=== PATIENT | female | born 1970 | race African-American/Black ===

== ENCOUNTER 2018-07-10 06:33 | Day surgery (SDC) | payer OTHER ==
--- OUTSIDE RECORDS SUMMARY | 2018-07-10 06:35 | XMS REPORT ---
:1970 Author Organization eClinicalWorks Care Team Providers Name Role Phone Iker Caio Provider Role Unavailable Allergies No Known Allergies Problems Problem Type Condition Code Onset Dates Condition Status Problem Adult BMI 33.0-33.9 kg/sq m Z68.33 Active Problem Former tobacco use Z87.891 Active Assessment Controlled type 2 diabetes mellitus E11.9 Active without complication, without long-term current use of insulin Problem Prediabetes R73.03 Active Problem Vitamin D deficiency E55.9 Active Problem Controlled type 2 diabetes mellitus E11.9 Active without complication, without long-term current use of insulin Problem Migraine without aura and without G43.009 Active status migrainosus, not intractable Problem HTN (hypertension), benign I10 Active Problem Mixed hyperlipidemia E78.2 Active Problem Fatigue, unspecified type R53.83 Active Medications Medication Code Code Instructions Start End Status Dosage System Date Date Losartan [facility] 26606589590 50-12.5 MG Active 1 tablet Potassium-HCTZ Orally Once a day Atenolol ND 66254796798 50 MG Orally Active 1 tablet Once a day Aspirin 81 ND 11600439681 81 MG Orally Active 1 tablet Once a day Janumet ND 09062016079 50-500 MG Orally Jun 05, Inactive 1 tablet Twice a day 2018 with meals MetFORMIN HCl ND 56479584584 500 MG Orally Jun 05, Active 1 tablet ER Twice a day 2018 with a meal Results No Known Results Summary Purpose eClinicalWorks Submission
--- OUTSIDE RECORDS SUMMARY | 2018-07-10 06:35 | XMS REPORT ---
:1970 Author Organization eClinicalWorks Care Team Providers Name Role Phone Caio Dong Provider Role Unavailable Allergies, Adverse Reactions, Alerts Substance Reaction Event Type N.K.D.A. Info Not Available Non Drug Allergy Problems Problem Type Condition Code Onset Dates Condition Status Assessment HTN (hypertension), benign I10 Active Problem HTN (hypertension), benign I10 Active Problem Mixed hyperlipidemia E78.2 Active Problem Prediabetes R73.03 Active Problem Vitamin D deficiency E55.9 Active Problem Fatigue, unspecified type R53.83 Active Problem Migraine without aura and without G43.009 Active status migrainosus, not intractable Problem Adult BMI 33.0-33.9 kg/sq m Z68.33 Active Problem Former tobacco use Z87.891 Active Assessment Adult BMI 33.0-33.9 kg/sq m Z68.33 Active Assessment Mixed hyperlipidemia E78.2 Active Assessment Vitamin D deficiency E55.9 Active Assessment Migraine without aura and without G43.009 Active status migrainosus, not intractable Assessment Prediabetes R73.03 Active Assessment Fatigue, unspecified type R53.83 Active Assessment Hip pain, right M25.551 Active Medications Medication Code Code Instructions Start End Date Status Dosage System Date Metformin HCl [facility] 86108474681 500 MG Orally August 02, Active 1 tablet Twice a day 2017 with a meal Atenolol [facility] 18889921759 50 MG Orally Active 1 tablet Once a day Losartan [facility] 12503290963 50-12.5 MG Active 1 tablet Potassium-HCTZ Orally Once a day Metformin HCl ND 55701322687 500 MG Orally Active 1 tablet Twice a day with a meal Aspirin 81 ND 73543867278 81 MG Orally Active 1 tablet Once a day Results No Known Results Summary Purpose eClinicalWorks Submission
--- OUTSIDE RECORDS SUMMARY | 2018-07-10 06:35 | XMS REPORT ---
:1970 Author Organization eClinicalWorks Care Team Providers Name Role Phone Caio Dnog Provider Role Unavailable Allergies No Known Allergies Problems Problem Type Condition Code Onset Dates Condition Status Problem HTN (hypertension), benign I10 Active Problem Mixed hyperlipidemia E78.2 Active Problem Prediabetes R73.03 Active Problem Vitamin D deficiency E55.9 Active Problem Fatigue, unspecified type R53.83 Active Problem Migraine without aura and without G43.009 Active status migrainosus, not intractable Problem Adult BMI 33.0-33.9 kg/sq m Z68.33 Active Problem Former tobacco use Z87.891 Active Medications No Known Medications Results No Known Results Summary Purpose eClinicalWorks Submission
--- OUTSIDE RECORDS SUMMARY | 2018-07-10 06:35 | XMS REPORT ---
:1970 [facility] [address] [place] [address] Care Team Providers Name Role Phone Unavailable Unavailable Unavailable Problems This patient has no known problems. Allergies, Adverse Reactions, Alerts This patient has no known allergies or adverse reactions. Medications This patient has no known medications. Results Test Description Test Time Test Comments Text Results Atomic Results Result Comments BREAST ULTRASOUND RIGHT 2018-06-19 10:08:31 - BREAST ULTRASOUND RIGHTULTRASOUND OF RIGHT BREAST AND RIGHT AXILLA: 06/19/2018CLINICAL: Right breast mass. Comparison is made to exam dated 06/17/2010 ultrasound - [facility]. Ultrasound of the right breast and axilla was performed. Magana scale images of the real-time examination were reviewed. Normal breast echotexture is noted. No abnormal mass lesions, architectural changes or cysts are identified. Within the right inframammary region of the anterior chest wall, is a subcutaneous nodule, hypoechoic measuring 0.5 cm in the long axis.IMPRESSION: BENIGN Findings are suspicious for a right chest wall, inframammary subcutaneous lesion, likely sebaceous or follicular. This can be better evaluated and followed up clinically.There is no sonographic evidence of breast malignancy. Resume annual screening mammography in one year. Mega velasco/:06/19/2018 10:08:31 Entry: cc - 06/22/2018 09:28:31Imaging Technologist: Sho AGLE, [facility] BIRADS 1-2 Combo FU Letter Ultrasound BI-RADS: 2 Benign DIAG MAMM BILATERAL ADA 2018-06-19 10:06:10 - DIAG MAMM BILATERAL ADA CAD CAD DIGITAL DIGITALBILATERAL DIGITAL DIAGNOSTIC MAMMOGRAM 3D/2D WITH CAD: 06/19/2018CLINICAL: Right breast lump and pain. Digital breast tomosynthesis was performed in addition to routine CC and MLO views. Current mammographic images were evaluated by either a [employer]-Vu or an [employer] version 7.2 computer aided detection system. Comparison is made to exam dated 06/17/2010 mammogram - [facility]. There are scattered fibroglandular tissues in both breasts. No suspicious mass, architectural distortion, malignant type calcification, or lymph node abnormality detected. IMPRESSION: INCOMPLETE ASSESSMENT: ADDITIONAL IMAGING EVALUATION RECOMMENDEDNegative bilateral mammogram. Additional evaluation with right breast ultrasound is requested an pending.Mega velasco/:06/19/2018 10:06:10 Property Assistant: Sunday GALE, [facility] BI-RADS: 0 Indeterminate
--- OUTSIDE RECORDS SUMMARY | 2018-07-10 06:35 | XMS REPORT ---
:1970 Author Organization eClinicalWorks Care Team Providers Name Role Phone Iker Caio Provider Role Unavailable Allergies, Adverse Reactions, Alerts Substance Reaction Event Type N.K.D.A. Info Not Available Non Drug Allergy Problems Problem Type Condition Code Onset Dates Condition Status Problem Adult BMI 33.0-33.9 kg/sq m Z68.33 Active Problem Former tobacco use Z87.891 Active Problem Prediabetes R73.03 Active Assessment Former tobacco use Z87.891 Active Problem Vitamin D deficiency E55.9 Active Assessment Need for influenza vaccination Z23 Active Problem Controlled type 2 diabetes mellitus E11.9 Active without complication, without long-term current use of insulin Problem Migraine without aura and without G43.009 Active status migrainosus, not intractable Problem HTN (hypertension), benign I10 Active Problem Mixed hyperlipidemia E78.2 Active Problem Fatigue, unspecified type R53.83 Active Assessment Vitamin D deficiency E55.9 Active Assessment Fatigue, unspecified type R53.83 Active Assessment Mixed hyperlipidemia E78.2 Active Assessment Migraine without aura and without G43.009 Active status migrainosus, not intractable Assessment Screening for colon cancer Z12.11 Active Assessment Screening mammogram, encounter for Z12.31 Active Assessment Controlled type 2 diabetes mellitus E11.9 Active without complication, without long-term current use of insulin Assessment Adult BMI 33.0-33.9 kg/sq m Z68.33 Active Assessment HTN (hypertension), benign I10 Active Assessment Encounter for preventative adult Z00.01 Active health care exam with abnormal findings Medications Medication Code Code Instructions Start End Status Dosage System Date Date Metformin HCl [facility] 70802780005 500 MG Orally Inactive 1 tablet Twice a day with a meal Losartan [facility] 02630393097 50-12.5 MG Active 1 tablet Potassium-HCTZ Orally Once a day Aprumet ND 77761751611 50-500 MG Orally Jun 05, Active 1 tablet Twice a day 2018 with meals Aspirin 81 [facility] 54372731318 81 MG Orally Active 1 tablet Once a day Atenolol [facility] 29431589778 50 MG Orally Active 1 tablet Once a day Results No Known Results Immunizations Vaccine Administration Date Afluria Jun 05, 2018 Summary Purpose eClinicalWorks Submission
[2018-07-10] MEDS ORDERED: NA CHLORIDE 0.9% 1,000 ML ONE (06:50)
[2018-07-10] MEDS ORDERED: PROPOFOL 200 MG/20 ML VIAL IV ONE (07:38)
[2018-07-10] MEDS ORDERED: LIDOCAINE 1% MPF 5 ML VIAL ONE (07:38)
--- NOTE | 2018-07-12 21:03 | ENDO RPT ---
[address], [address] COLONOSCOPY PROCEDURE REPORT EXAM DATE: 07/10/2018 PATIENT NAME: Halima Serrano MR #: [id number] BIRTHDATE: 1970 ATTENDING: Miky Pritchard MD STATUS: outpatient CLIENT RELATIONSHIP CONSULTANT: Esperanza Rubio RN and Rayne Mendoza INDICATIONS: The patient is a 48 yr old Female here for a colonoscopy due to colon cancer screening PROCEDURE PERFORMED: Colonoscopy MEDICATIONS: Per Anesthesia. ESTIMATED BLOOD LOSS: None CONSENT: The patient understands the risks and benefits of the procedure and understands that these risks include, but are not limited to: sedation, allergic reaction, infection, perforation and/or bleeding. Alternative means of evaluation and treatment include, among others: physical exam, x-rays, and/or surgical intervention. The patient elects to proceed with this endoscopic procedure. DESCRIPTION OF PROCEDURE: During intra-op preparation period all mechanical medical equipment was checked for proper function. Hand hygiene and appropriate measures for infection prevention was taken. Procedure, possible complications, alternatives including, but not limited to possibility of bleeding, perforation, tear, infection, sepsis, need for surgery, need for blood transfusion, were explained to the patient. After the risks, benefits and alternatives of the procedure were thoroughly explained, Informed consent was verified, confirmed and timeout was successfully executed by the treatment team. The patient was placed in the left lateral position. A digital rectal exam was performed and revealed external hemorrhoids. After appropriate level of anesthesia, the scope was passed. The EC-[id number] ([id number]) endoscope was introduced through the anus and advanced to the cecum, which was identified by transillumination from the light source, the appendix, and the ileocecal valve. The quality of the prep was fair. The instrument was then slowly withdrawn as the colon was fully examined. Scope withdrawal time was . COLON FINDINGS: Internal and external hemorrhoids were found. Retroflexed views revealed no abnormalities. The scope was then completely withdrawn from the patient and the procedure terminated. ADVERSE EVENTS: There were no complications. IMPRESSIONS: Internal and external hemorrhoids RECOMMENDATIONS: follow-up: office 1-2 week(s) RECALL: Return in 5-10 year(s) for Colonoscopy. Miky Pritchard MD eSigned: Miky Pritchard MD 07/10/2018 8:02 AM cc: Caio Dong MD CPT CODES: ICD9 CODES: PATIENT NAME: Halima Serrano MR#: [id number]
== END 2018-07-10 08:25 | disposition home or self-care (01) ==
LOC: OR 06:33
PROVIDERS: ATTEND Surgery
PROC: 0DJD8ZZ Inspection of Lower Intestinal Tract, Via Natural or Artificial Opening Endoscopic (ICD-10-PCS; principal; 2018-07-10 07:30)
DX: Z12.11 Encounter for screening for malignant neoplasm of colon (principal); K64.8 Other hemorrhoids; K64.4 Residual hemorrhoidal skin tags; E11.9 Type 2 diabetes mellitus without complications; I10 Essential (primary) hypertension; Z79.84 Long term (current) use of oral hypoglycemic drugs; Z79.82 Long term (current) use of aspirin; Z79.899 Other long term (current) drug therapy
CPT/HCPCS: 82962; J2704; J7030

== ENCOUNTER 2019-02-13 15:24 | Emergency (ER) | payer OTHER ==
[2019-02-13] MEDS ORDERED: metroNIDAZOLE 500 MG TABLET ONE (17:05)
[2019-02-13] MEDS ORDERED: CLINDAMYCIN HCL 150 MG CAP ONE (17:06)
[2019-02-13] MEDS ORDERED: HYDROCODONE/APAP 7.5/325 MG TAB ONE (17:06)
--- NOTE | 2019-02-13 18:38 | ER ---
Nurse's Notes [facility] Name: Halima Serrano Age: 49 yrs Sex: Female : 1970 Arrival Date: 02/13/2019 Time: 15:43 Bed External Waiting [facility] MD: Diagnosis: Dental Abscess Presentation: 02/13 15:44 Presenting complaint: Right sided facial swelling x 2 days. Had clindamycin at home hb from previous illness, started yesterday. Transition of care: patient was not received from another setting of care. Onset of symptoms was February 12, 2019. Risk Assessment: Do you want to hurt yourself or someone else? Patient reports no desire to harm self or others. Care prior to arrival: Medication(s) given: clindamycin. 15:44 Method Of Arrival: Ambulatory hb 15:44 Acuity: KAVEH 3 hb Historical: - Allergies: 15:46 No Known Allergies; hb - Home Meds: 15:46 aspirin 81 mg Oral chew [Active]; Atenolol Oral [Active]; Metformin Oral [Active]; hb - PMHx: 15:46 Hypertension; Hypothyroidism; Diabetes - NIDDM; hb - PSHx: 15:46 Hysterectomy; hb - Immunization history:: Adult Immunizations up to date. - Social history:: Smoking status: Patient/guardian denies using tobacco. - Ebola Screening: : No symptoms or risks identified at this time. Vital Signs: 15:46 BP 174 / 93; Pulse 76; Resp 16; Temp 98.2; Pulse Ox 100% ; Weight 83.91 kg; Height 5 hb ft. 7 in. (170.18 cm); Pain 8/10; 15:46 Body Mass Index 28.97 (83.91 kg, 170.18 cm) hb ED Course: 15:43 Patient arrived in ED. hb 15:45 Triage completed. hb 15:46 Arm band placed on. hb 18:37 Mark Branch MD is Attending Physician. iw Administered Medications: No medications were administered Outcome: 18:36 Discharge ordered by MD. iw 18:37 Patient left the ED. iw Signatures: Angie Velasco RN RN iw Astrid Ludwig RN RN hb
[2019-02-13 20:10] VITALS: BP 174/93; TEMP 98.2; O2SAT 100
--- OUTSIDE RECORDS SUMMARY | 2019-02-23 18:59 | XMS REPORT ---
:1970 [facility] Address [address] [place] [address] Care Team Providers Name Role Phone Unavailable [...] to exam dated 06/17/2010 ultrasound - [facility]. Ultrasound of the right breast [...] Entry: cc - 06/22/2018 09:28:31Imaging Technologist: Sho GALE, [facility] sent: BIRADS 1-2 Combo FU Letter Ultrasound BI-RADS: 2 Benign DIAG MAMM BILATERAL ADA 2018-06-19 10:06:10 - DIAG MAMM BILATERAL ADA CAD CAD DIGITAL DIGITALBILATERAL DIGITAL DIAGNOSTIC MAMMOGRAM 3D/2D WITH CAD: 06/19/2018CLINICAL: Right breast lump and pain. Digital breast tomosynthesis was performed in addition to routine CC and MLO views. Current mammographic images were evaluated by either a [employer] M-Vu or an [employer] version 7.2 computer aided detection system. Comparison is made to exam dated 06/17/2010 mammogram - [facility]. There are scattered fibroglandular tissues in both breasts. No suspicious mass, architectural distortion, malignant type calcification, or lymph node abnormality detected. IMPRESSION: INCOMPLETE ASSESSMENT: ADDITIONAL IMAGING EVALUATION RECOMMENDEDNegative bilateral mammogram. Additional evaluation with right breast ultrasound is requested an pending.Mega velasco/:06/19/2018 10:06:10 Liquid Hydrogen Plant Operator: Sunday Hunter RG, [facility] BI-RADS: 0 Indeterminate
--- OUTSIDE RECORDS SUMMARY | 2019-02-23 18:59 | XMS REPORT ---
:1970 Author Organization eClinicalWorks Care Team Providers Name Role Phone Wai Hallman Provider Role Unavailable Allergies No Known Allergies Problems Problem Type Condition Code Onset Dates Condition Status Problem Former tobacco use Z87.891 Active Problem HTN (hypertension), benign I10 Active Problem Adult BMI 33.0-33.9 kg/sq m Z68.33 Active Problem Controlled type 2 diabetes mellitus E11.9 Active without complication, without long-term current use of insulin Problem Prediabetes R73.03 Active Problem Arthritis of sacroiliac joint M47.818 Active Problem Fatigue, unspecified type R53.83 Active Problem Migraine without aura and without G43.009 Active status migrainosus, not intractable Problem Vitamin D deficiency E55.9 Active Problem Mixed hyperlipidemia E78.2 Active Medications No Known Medications Results No Known Results Summary Purpose Scoop.it[employer]TASS Submission
--- OUTSIDE RECORDS SUMMARY | 2019-02-23 18:59 | XMS REPORT ---
:1970 Author Organization eClinicalWorks Care Team Providers Name Role Phone DongCaio Provider Role Unavailable Allergies, Adverse Reactions, Alerts [...] without long-term current use of insulin Assessment Statin intolerance Z78.9 Active Problem Prediabetes R73.03 Active Assessment Lumbar radiculopathy, chronic M54.16 Active Assessment Radicular syndrome of right lower M54.10 Active extremity Problem Arthritis of sacroiliac joint M47.818 Active Problem Fatigue, unspecified type R53.83 Active Problem Migraine without aura and without G43.009 Active status migrainosus, not intractable Problem Vitamin D deficiency E55.9 Active Problem Mixed hyperlipidemia E78.2 Active Assessment Adult BMI 33.0-33.9 kg/sq m Z68.33 Active Assessment Mixed hyperlipidemia E78.2 Active Assessment Right hip pain M25.551 Active Assessment Former tobacco use Z87.891 Active Assessment Fatigue, unspecified type R53.83 Active Assessment HTN (hypertension), benign I10 Active Assessment Migraine without aura and without G43.009 Active status migrainosus, not intractable Assessment Controlled type 2 diabetes mellitus E11.9 Active without complication, without long-term current use of insulin Assessment Vitamin D deficiency E55.9 Active Medications Medication Code Code Instructions Start End Status Dosage System Date Date Aspirin 81 [facility] 37323732332 81 MG Orally Active 1 tablet Once a day Atenolol ND 73027471370 50 MG Orally Active 1 tablet Once a day Losartan ND 29509824347 50-12.5 MG Active 1 tablet Potassium-HCTZ Orally Once a day Atorvastatin ND 95546159039 10 MG Orally Inactive 1 tablet Calcium Once a day Zetia [facility] 58745317301 10 MG Orally Feb 20, Active 1 tablet Once a day 2018 Vitamin D [facility] [address]-34 Active not defined Magnesium [facility] 0 Active not defined Mobic [facility] 85613016160 7.5 MG Active TAKE 1 TABLET BY MOUTH EVERY DAY MetFORMIN HCl [facility] 57416668176 500 MG Orally Active 1 tablet ER Twice a day with a meal Results No Known Results Summary Purpose eClinicalWorks Submission
== END 2019-02-13 18:37 | disposition home or self-care (01) ==
LOC: ER 15:24
DX: K04.7 Periapical abscess without sinus (principal); I10 Essential (primary) hypertension; E11.9 Type 2 diabetes mellitus without complications
CPT/HCPCS: 99281

== ENCOUNTER 2022-03-09 23:20 | Emergency (ER) | payer OTHER ==
--- OUTSIDE RECORDS SUMMARY | 2022-03-09 23:25 | XMS REPORT | Continuity of Care Document ---
:1970 Author Organization [facility] t Address [address] [place] [address] Care Team Providers Name Role Phone Alysia Hagen Primary Care Physician Caio Dong Attending Clinician Unavailable Alysia Hagen Attending Clinician Lissa Velasquez LVN Attending Clinician Unavailable Lab, Ang - Db Attending Clinician Unavailable ALYSIA ANAYA Attending Clinician Unavailable Esteban Ortiz MD Attending Clinician ESTEBAN ORTIZ Attending Clinician Unavailable Carlos Rowell MD Attending Clinician Doctor Unassigned, [place] Attending Clinician Unavailable MARCIN GRADY Attending Clinician Unavailable Nurse, Adc Pob Immunization Attending Clinician Unavailable Marcin Grady DO Attending Clinician Horace Ochoa Attending Clinician CATRACHO BONILLA Attending Clinician Unavailable Pob[facility], [facility] Attending Clinician Unavailable ALYSIA ANAYA Admitting Clinician Unavailable Payers Payer Name Policy Type Policy Number Effective Date Expiration Date S ashley LEVINENA II [id number] 2019 00:00:00 [employer] C1 [id number] 2018 [facility] 00:00[facility]00 [facility] Problems Condition Condition Condition Status Onset Resolution Last Treating Co mments Source Name Details Category Date Date Treatment Clinician Date [id number] Memory Problem Active Common change [facility] - [facility] [id number] Former Problem Active Common tobacco Spirit use - [facility] [id number] Migraine Problem Active Comm on without Spirit aura and - [facility] without [facility] migrainosu Medica l s, not Center intractabl e [id number] Adult BMI Problem Active Com mon 33.0-33.9 Spirit kg/sq m [facility] [id number] Vitamin D Problem Active Comm on deficiency [facility] [id number] Mixed Problem Active Common hyperlipid Spirit emia [facility] [id number] Prediabete Problem Active Co mmon s [facility] [id number] Degenerati Problem Active Com mon ve disc Spirit disease at [facility] L5-S1 [facility] [id number] HTN Problem Active Common (hypertens Spirit ion), - [facility] benign [facility] [id number] Bulging Problem Active Commo n lumbar Spirit disc [facility] [id number] Fatigue, Problem Active Commo n unspecifie Spirit d type - [facility] [id number] Controlled Problem Active Co mmon type 2 Spirit diabetes - [facility] mellitus [facility] complicati Medica l on, Center without long-term current use of insulin [id number] Arthritis Problem Active Com mon of Spirit sacroiliac - [facility] joint [facility] [id number] Subclinica Problem Active Co mmon l Spirit hyperthyro - 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 Spirit n [facility] No known No known Disease Unive rs active active ity of problems problems [facility] Allergies, Adverse Reactions, Alerts Allergy Allergy Status Severity Reaction(s) Onset Inactive Treating Comm ents Source Name Type Date Date Clinician NO KNOWN Drug Active Univers ALLERGIE Class ity of S [facility] Social History Social Habit Start Date Stop Date Quantity Comments Source History of [facility] - [facility] Use [facility] Sex Assigned At [facility] deepthi - [facility] Exposure to 2021-12-02 2021-12-12 Not sure University of SARS-CoV-2 00:00:00 09:35:00 [facility] (event) Branch Tobacco use and 2019-11-02 2019-11-02 Smokeless tobacco Un iversity of exposure 00:00:00 00:00:00 non-user [facility] Smoking Status Start Date Stop Date Source Former Smoker 2020-12-15 00:00:00 2020-12-15 00:00:00 [facility] - [facility] Medications Ordered Filled Start Stop Current Ordering Indication Dosage Frequency Signature Comments Components Source Medication Medication Date Date Medication? Clinician (SIG) Name Name metformin 2021-04 Yes [id number] 500mg Take 1 U nivers ER 500 mg 1-17 tablet by ity o f 24 hr 00:00: mouth in [place] tablet 00 the Medical morning. Branch ezetimibe 2021-04 Yes [id number] 10mg Take 1 U nivers 10 mg 1-17 tablet by ity of tablet 00:00: mouth in [place] 00 the Medical morning. Branch losartan-hy 2021-04 Yes [id number] 1{tbl} Take 1 Univers drochloroth 1-17 tablet by ity of iazide 00:00: mouth in [place] 50-12.5 mg 00 the Medical per tablet morning. Bran h atenoloL 2021-04 Yes [id number] 100mg Take 1 Un arya 100 mg 1-17 tablet by ity of tablet 00:00: mouth in [place] 00 the Medical morning. Branch metformin 2021-04 Yes [id number] 500mg Take 1 U nivers ER 500 mg 1-17 tablet by ity o f 24 hr 00:00: mouth in [place] tablet 00 the Medical morning. Branch ezetimibe 2021-04 Yes [id number] 10mg Take 1 U nivers 10 mg 1-17 tablet by ity of tablet 00:00: mouth in [place] 00 the Medical morning. Branch losartan-hy 2021-04 Yes [id number] 1{tbl} Take 1 Univers drochloroth 1-17 tablet by ity of iazide 00:00: mouth in [place] 50-12.5 mg 00 the Medical per tablet morning. Branc h atenoloL 2021-04 Yes [id number] 100mg Take 1 Un arya 100 mg 1-17 tablet by ity of tablet 00:00: mouth in [place] 00 the Medical morning. Branch metformin 2021-0 Yes [id number] 500mg Take 1 U nivers ER 500 mg 8-29 tablet by ity o f 24 hr 00:00: mouth in [place] tablet 00 the Medical morning. Branch ezetimibe 2021-0 Yes [id number] 10mg Take 1 U nivers 10 mg 8-29 tablet by ity of tablet 00:00: mouth in [place] 00 the Medical morning. Branch losartan-hy 2021-0 Yes [id number] 1{tbl} Take 1 Univers drochloroth 8-29 tablet by ity of iazide 00:00: mouth in [place] 50-12.5 mg 00 the Medical per tablet morning. Bran h atenoloL 2021-0 Yes [id number] 100mg Take 1 Un arya 100 mg 8-29 tablet by ity of tablet 00:00: mouth in [place] 00 the Medical morning. Branch metformin 2021-0 Yes [id number] 500mg Take 1 U nivers ER 500 mg 8-29 tablet by ity o f 24 hr 00:00: mouth in [place] tablet 00 the Medical morning. Branch ezetimibe 2021-0 Yes [id number] 10mg Take 1 U nivers 10 mg 8-29 tablet by ity of tablet 00:00: mouth in [place] 00 the Medical morning. Branch losartan-hy 2021-0 Yes [id number] 1{tbl} Take 1 Univers drochloroth 8-29 tablet by ity of iazide 00:00: mouth in [place] 50-12.5 mg 00 the Medical per tablet morning. Bran h atenoloL 2021-0 Yes [id number] 100mg Take 1 Un arya 100 mg 8-29 tablet by ity of tablet 00:00: mouth in [place] 00 the Medical morning. Branch metformin 2021-0 Yes [id number] 500mg Take 1 U nivers ER 500 mg 8-29 tablet by ity o f 24 hr 00:00: mouth in [place] tablet 00 the Medical morning. Branch ezetimibe 2021-0 Yes [id number] 10mg Take 1 U nivers 10 mg 8-29 tablet by ity of tablet 00:00: mouth in [place] 00 the Medical morning. Branch losartan-hy 2021-0 Yes [id number] 1{tbl} Take 1 Univers drochloroth 8-29 tablet by ity of iazide 00:00: mouth in [place] 50-12.5 mg 00 the Medical per tablet morning. Bran h atenoloL 2021-0 Yes [id number] 100mg Take 1 Un arya 100 mg 8-29 tablet by ity of tablet 00:00: mouth in [place] 00 the Medical morning. Branch metformin 2021-0 Yes [id number] 500mg Take 1 U nivers ER 500 mg 8-29 tablet by ity o f 24 hr 00:00: mouth in [place] tablet 00 the Medical morning. Branch ezetimibe 2021-0 Yes [id number] 10mg Take 1 U nivers 10 mg 8-29 tablet by ity of tablet 00:00: mouth in [place] 00 the Medical morning. Branch losartan-hy 0 Yes [id number] 1{tbl} Take 1 Univers drochloroth 8-29 tablet by ity of iazide 00:00: mouth in [place] 50-12.5 mg 00 the Medical per tablet morning. Bran h atenoloL Yes [id number] 100mg Take 1 Un arya 100 mg 8-29 tablet by ity of tablet 00:00: mouth in [place] 00 the Medical morning. Branch metformin 2021-0 2021- No [id number] 500mg Take 1 Univers ER 500 mg 8-29 11-13 tablet by ity of 24 hr 00:00: 00:00 mouth in [place] tablet 00 :00 the Medical morning. Branch ezetimibe 2021-0 2- No [id number] 10mg Take 1 Univers 10 mg 8-29 11-13 tablet by ity of tablet 00:00: 00:00 mouth in [place] 00 :00 the Medical morning. Branch losartan-hy 2021-0 2- No [id number] 1{tbl} Take 1 Univers drochloroth 8-29 11-13 tablet by it y of iazide 00:00: 00:00 mouth in [place] 50-12.5 mg 00 :00 the Medical per tablet morning. Branc h atenoloL 2021-0 2- No [id number] 100mg Take 1 U nivers 100 mg 8-29 11-13 tablet by ity of tablet 00:00: 00:00 mouth in [place] 00 :00 the Medical morning. Branch atenoloL 50 2021- No [id number] 50mg Take 1 Univers mg tablet 12-12 tablet by ity of 00:00: 00:00 mouth in [place] 00 :00 the Medical morning. Branch metformin 2021- No [id number] 500mg Take 1 Univers ER 500 mg 11-14 tablet by ity of 24 hr 00:00: 00:00 mouth in [place] tablet 00 :00 the Medical morning. Branch atenoloL 50 2021- No [id number] 50mg Take 1 Univers mg tablet 10-06 tablet by ity of 00:00: 00:00 mouth [place] 00 :00 daily. Medical Branch ezetimibe 2021- No [id number] 10mg Take 1 Univers 10 mg 09-30 tablet by ity of tablet 00:00: 00:00 mouth [place] 00 :00 daily. Medical Branch losartan-hy 2021- No [id number] 1{tbl} Take 1 Univers drochloroth 09-06 tablet by it y of iazide 00:00: 00:00 mouth [place] 50-12.5 mg 00 :00 daily. Medical per tablet Branch ibuprofen 2021- No [id number] 800mg Take 1 Univers 800 mg 12-09 tablet by ity of tablet 00:00: 00:00 mouth [place] 00 :00 every 8 Medical (eight) Branch hours as needed for Pain (scale 4-6). Vitamin D3 Vitamin D3 2020- No 1{capsu Vitamin D3 67963 UNIT 90185 UNIT 11-19 le} 16255 UNIT 00:00: 00:00 00 :00 Vitamin D3 Vitamin D3 2020- No 1{capsu Vitamin D3 11770 UNIT 80291 UNIT 11-19 le} 31588 UNIT 00:00: 00:00 00 :00 Vitamin D3 Vitamin D3 2020- No 1{capsu Vitamin D3 68707 UNIT 12559 UNIT 11-19 le} 89150 UNIT 00:00: 00:00 00 :00 tiZANidine 2019-0 Yes 4mg Take 4 mg Un arya 4 mg tablet 10-15 by mouth ity of 00:00: at [place] [address] bedtime. Medical Branch tiZANidine 2020-0 Yes 4mg Take 4 mg Un arya 4 mg tablet 10-15 by mouth ity of 00:00: at [place] bedtime. Medical Branch tiZANidine 2020-0 Yes 4mg Take 4 mg Un arya 4 mg tablet 10-15 by mouth ity of 00:00: at [place] bedtime. Medical Branch tiZANidine 2020-0 Yes 4mg Take 4 mg Un arya 4 mg tablet 10-15 by mouth ity of 00:00: at [place] bedtime. Medical Branch tiZANidine 2020-0 Yes 4mg Take 4 mg Un arya 4 mg tablet 10-15 by mouth ity of 00:00: at [place] bedtime. Medical Branch tiZANidine 2020-0 Yes 4mg Take 4 mg Un arya 4 mg tablet 10-15 by mouth ity of 00:00: at [place] [address] bedtime. Medical Branch etodolac 2020-0 Yes 1{tbl} Take 1 Unive rs 500 mg 6-22 tablet by ity of tablet 00:00: mouth as [place] 00 needed. Medical Branch etodolac 2020-0 Yes 1{tbl} Take 1 Unive rs 500 mg 6-22 tablet by ity of tablet 00:00: mouth as [place] 00 needed. Medical Branch etodolac 2020-0 Yes 1{tbl} Take 1 Unive rs 500 mg 6-22 tablet by ity of tablet 00:00: mouth as 00 needed. Medical Branch etodolac 2020-0 Yes 1{tbl} Take 1 Unive rs 500 mg 6-22 tablet by ity of tablet 00:00: mouth as [place] 00 needed. Medical Branch etodolac 2020-0 Yes 1{tbl} Take 1 Unive rs 500 mg 6-22 tablet by ity of tablet 00:00: mouth as [place] 00 needed. Medical Branch etodolac 2020-0 Yes 1{tbl} Take 1 Unive rs 500 mg 6-22 tablet by ity of tablet 00:00: mouth as [place] 00 needed. Medical Branch Losartan Losartan Yes Caio 1 tablet C ommon Potassium-H Potassium-H [facility] CTZ CTZ - [facility]I [facility] Zetia Zetia Yes Caio 1 tablet Common Dong [facility] - [facility] Center Magnesium Magnesium Yes Caio not Com mon Dong defined [facility] Atenolol Atenolol Yes Caio 1 tablet C ommon Dong [facility] MetFORMIN MetFORMIN Yes Caio 1 tablet Common HCl ER HCl ER Dong with a [facility] meal [facility] Vitamin D Vitamin D Yes Caio not Com mon Dong defined [facility] Aspirin 81 Aspirin 81 Yes Caio 1 tablet Common Dong [facility] Atorvastati Atorvastati Yes Caio 1 tablet Common n Calcium n Calcium Dong Spir it [facility] Tizanidine Tizanidine Yes Caio 1 tablet Common HCl HCl Dong as needed [facility] Losartan Losartan Yes Caio TAKE 1 Com mon Potassium-H Potassium-H Dong TABLET BY [facility] CTZ CTZ MOUTH - CHI EVERY DAY [facility] Ezetimibe Ezetimibe Yes Caio TAKE 1 C ommon Dong TABLET BY Spirit MOUTH - CHI EVERY DAY [facility] MetFORMIN MetFORMIN Yes Caio TAKE 1 C ommon HCl ER HCl ER Dong TABLET BY Spiri t MOUTH - CHI TWICE A DAY WITH A [facility] Losartan Losartan No Losartan Potassium-H Potassium-H Potassium- CTZ 50-12.5 CTZ 50-12.5 HCTZ MG MG 50-12.5 MG Ezetimibe Ezetimibe No Ezetimibe 10 MG 10 MG 10 MG Losartan Losartan No 1{table QD Losartan Potassium-H Potassium-H t} Potassium- CTZ CTZ HCTZ 100-12.5 MG 100-12.5 MG 100-12.5 MG Zetia 10 MG Zetia 10 MG No 1{table QD Zetia 10 t} MG Tizanidine Tizanidine No 1{table QD Tizanidine HCl 4 MG HCl 4 MG t_as_ne HCl 4 MG eded} MetFORMIN MetFORMIN No 1{table BID MetFORMIN HCl ER 500 HCl ER 500 t_with_ HCl ER 500 MG MG a_meal} MG Aspirin 81 Aspirin 81 No 1{table QD Aspirin 81 81 MG 81 MG t} 81 MG Atenolol 50 Atenolol 50 No 1{table QD Atenolol MG MG t} 50 MG Atenolol 50 Atenolol 50 No Atenolol MG MG 50 MG Vitamin D Vitamin D No Vitamin D MetFORMIN MetFORMIN No MetFORMIN HCl ER 500 HCl ER 500 HCl ER 500 MG MG MG Magnesium Magnesium No Magnesium Losartan Losartan No Losartan Potassium-H Potassium-H Potassium- CTZ 50-12.5 CTZ 50-12.5 HCTZ MG MG 50-12.5 MG Losartan Losartan No 1{table QD Losartan Potassium-H Potassium-H t} Potassium- CTZ CTZ HCTZ 100-12.5 MG 100-12.5 MG 100-12.5 MG Ezetimibe Ezetimibe No Ezetimibe 10 MG 10 MG 10 MG Zetia 10 MG Zetia 10 MG No 1{table QD Zetia 10 t} MG Tizanidine Tizanidine No 1{table QD Tizanidine HCl 4 MG HCl 4 MG t_as_ne HCl 4 MG eded} MetFORMIN MetFORMIN No 1{table BID MetFORMIN HCl ER 500 HCl ER 500 t_with_ HCl ER 500 MG MG a_meal} MG Aspirin 81 Aspirin 81 No 1{table QD Aspirin 81 81 MG 81 MG t} 81 MG Atenolol 50 Atenolol 50 No 1{table QD Atenolol MG MG t} 50 MG Atenolol 50 Atenolol 50 No Atenolol MG MG 50 MG Vitamin D Vitamin D No Vitamin D Losartan Losartan No .5{tabl QD Losartan Potassium-H Potassium-H et} Potassium- CTZ CTZ HCTZ 100-12.5 MG 100-12.5 MG 100-12.5 MG Magnesium Magnesium No Magnesium Losartan Losartan No Losartan Potassium-H Potassium-H Potassium- CTZ 50-12.5 CTZ 50-12.5 HCTZ MG MG 50-12.5 MG Atenolol 50 Atenolol 50 No Atenolol MG MG 50 MG Ezetimibe Ezetimibe No Ezetimibe 10 MG 10 MG 10 MG MetFORMIN MetFORMIN No MetFORMIN HCl ER 500 HCl ER 500 HCl ER 500 MG MG MG Tizanidine Tizanidine No 1{table QD Tizanidine HCl 4 MG HCl 4 MG t_as_ne HCl 4 MG eded} MetFORMIN MetFORMIN No 1{table BID MetFORMIN HCl ER 500 HCl ER 500 t_with_ HCl ER 500 MG MG a_meal} MG Aspirin 81 Aspirin 81 No 1{table QD Aspirin 81 81 MG 81 MG t} 81 MG Atenolol 50 Atenolol 50 No 1{table QD Atenolol MG MG t} 50 MG Zetia 10 MG Zetia 10 MG No 1{table QD Zetia 10 t} MG Ezetimibe Ezetimibe No Ezetimibe 10 MG 10 MG 10 MG Zetia 10 MG Zetia 10 MG No 1{table QD Zetia 10 t} MG Tizanidine Tizanidine No 1{table QD Tizanidine HCl 4 MG HCl 4 MG t_as_ne HCl 4 MG eded} Aspirin 81 Aspirin 81 No 1{table QD Aspirin 81 81 MG 81 MG t} 81 MG MetFORMIN MetFORMIN No 1{table BID MetFORMIN HCl ER 500 HCl ER 500 t_with_ HCl ER 500 MG MG a_meal} MG Atenolol 50 Atenolol 50 No 1{table QD Atenolol MG MG t} 50 MG Losartan Losartan No 1{table QD Losartan Potassium-H Potassium-H t} Potassium- CTZ CTZ HCTZ 100-12.5 MG 100-12.5 MG 100-12.5 MG Losartan Losartan No Losartan Potassium-H Potassium-H Potassium- CTZ 50-12.5 CTZ 50-12.5 HCTZ MG MG 50-12.5 MG Vitamin D Vitamin D No Vitamin D Atenolol 50 Atenolol 50 No Atenolol MG MG 50 MG MetFORMIN MetFORMIN No MetFORMIN HCl ER 500 HCl ER 500 HCl ER 500 MG MG MG Magnesium Magnesium No Magnesium metFORMIN metFORMIN No metFORMIN HCl ER 500 HCl ER 500 HCl ER 500 MG MG MG Losartan Losartan No 1{table QD Losartan Potassium-H Potassium-H t} Potassium- CTZ CTZ HCTZ 100-12.5 MG 100-12.5 MG 100-12.5 MG Zetia 10 MG Zetia 10 MG No 1{table QD Zetia 10 t} MG Atenolol 50 Atenolol 50 No 1{table QD Atenolol MG MG t} 50 MG Magnesium Magnesium No Magnesium Losartan Losartan No Losartan Potassium-H Potassium-H Potassium- CTZ 50-12.5 CTZ 50-12.5 HCTZ MG MG 50-12.5 MG tiZANidine tiZANidine No 1{table QD tiZANidine HCl 4 MG HCl 4 MG t_as_ne HCl 4 MG eded} Aspirin 81 Aspirin 81 No 1{table QD Aspirin 81 81 MG 81 MG t} 81 MG Atenolol 50 Atenolol 50 No Atenolol MG MG 50 MG PARoxetine PARoxetine No PARoxetine HCl 10 MG HCl 10 MG HCl 10 MG metFORMIN metFORMIN No 1{table BID metFORMIN HCl ER 500 HCl ER 500 t_with_ HCl ER 500 MG MG a_meal} MG Ezetimibe Ezetimibe No Ezetimibe 10 MG 10 MG 10 MG Vitamin D Vitamin D No Vitamin D metFORMIN metFORMIN No metFORMIN HCl ER 500 HCl ER 500 HCl ER 500 MG MG MG Losartan Losartan No 1{table QD Losartan Potassium-H Potassium-H t} Potassium- CTZ CTZ HCTZ 100-12.5 MG 100-12.5 MG 100-12.5 MG Zetia 10 MG Zetia 10 MG No 1{table QD Zetia 10 t} MG Atenolol 50 Atenolol 50 No 1{table QD Atenolol MG MG t} 50 MG Magnesium Magnesium No Magnesium Losartan Losartan No Losartan Potassium-H Potassium-H Potassium- CTZ 50-12.5 CTZ 50-12.5 HCTZ MG MG 50-12.5 MG tiZANidine tiZANidine No 1{table QD tiZANidine HCl 4 MG HCl 4 MG t_as_ne HCl 4 MG eded} Aspirin 81 Aspirin 81 No 1{table QD Aspirin 81 81 MG 81 MG t} 81 MG Atenolol 50 Atenolol 50 No Atenolol MG MG 50 MG PARoxetine PARoxetine No PARoxetine HCl 10 MG HCl 10 MG HCl 10 MG metFORMIN metFORMIN No 1{table BID metFORMIN HCl ER 500 HCl ER 500 t_with_ HCl ER 500 MG MG a_meal} MG Ezetimibe Ezetimibe No Ezetimibe 10 MG 10 MG 10 MG Vitamin D Vitamin D No Vitamin D tiZANidine tiZANidine No 1{table QD tiZANidine HCl 4 MG HCl 4 MG t_as_ne HCl 4 MG eded} PARoxetine PARoxetine No PARoxetine HCl 10 MG HCl 10 MG HCl 10 MG Magnesium Magnesium No Magnesium Losartan Losartan No Losartan Potassium-H Potassium-H Potassium- CTZ 50-12.5 CTZ 50-12.5 HCTZ MG MG 50-12.5 MG metFORMIN metFORMIN No metFORMIN HCl ER 500 HCl ER 500 HCl ER 500 MG MG MG Atenolol 50 Atenolol 50 No 1{table QD Atenolol MG MG t} 50 MG Vitamin D Vitamin D No Vitamin D Zetia 10 MG Zetia 10 MG No 1{table QD Zetia 10 t} MG Ezetimibe Ezetimibe No Ezetimibe 10 MG 10 MG 10 MG Atenolol 50 Atenolol 50 No Atenolol MG MG 50 MG metFORMIN metFORMIN No 1{table BID metFORMIN HCl ER 500 HCl ER 500 t_with_ HCl ER 500 MG MG a_meal} MG Aspirin 81 Aspirin 81 No 1{table QD Aspirin 81 81 MG 81 MG t} 81 MG Losartan Losartan No 1{table QD Losartan Potassium-H Potassium-H t} Potassium- CTZ CTZ HCTZ 100-12.5 MG 100-12.5 MG 100-12.5 MG MetFORMIN MetFORMIN No MetFORMIN HCl ER 500 HCl ER 500 HCl ER 500 MG MG MG Vitamin D Vitamin D No Vitamin D Ezetimibe Ezetimibe No Ezetimibe 10 MG 10 MG 10 MG Tizanidine Tizanidine No 1{table QD Tizanidine HCl 4 MG HCl 4 MG t_as_ne HCl 4 MG eded} Losartan Losartan No 1{table QD Losartan Potassium-H Potassium-H t} Potassium- CTZ 50-12.5 CTZ 50-12.5 HCTZ MG MG 50-12.5 MG Atenolol 50 Atenolol 50 No 1{table QD Atenolol MG MG t} 50 MG MetFORMIN MetFORMIN No 1{table BID MetFORMIN HCl ER 500 HCl ER 500 t_with_ HCl ER 500 MG MG a_meal} MG Losartan Losartan No Losartan Potassium-H Potassium-H Potassium- CTZ 50-12.5 CTZ 50-12.5 HCTZ MG MG 50-12.5 MG Magnesium Magnesium No Magnesium Atenolol 50 Atenolol 50 No Atenolol MG MG 50 MG Zetia 10 MG Zetia 10 MG No 1{table QD Zetia 10 t} MG Aspirin 81 Aspirin 81 No 1{table QD Aspirin 81 81 MG 81 MG t} 81 MG Vitamin D Vitamin D No Vitamin D MetFORMIN MetFORMIN No MetFORMIN HCl ER 500 HCl ER 500 HCl ER 500 MG MG MG Magnesium Magnesium No Magnesium Immunizations Ordered Filled Immunization Date Status Comments Sour e Immunization Name Name TDAP 2021-12-12 Completed University 00:00:00 [facility] TDAP 2021-12-12 Completed University of 00:00:00 [facility] TDAP 2021-12-12 Completed University of 00:00:00 [facility] TDAP 2021-12-12 Completed University of 00:00:00 [facility] TDAP 2021-12-12 Completed University of 00:00:00 [facility] TDAP 2021-12-12 Completed University of 00:00:00 [facility] SARS-COV-2 COVID-19 2021-04-19 Completed Unive rsity of PFIZER VACCINE 00:00:00 [facility] [place] [facility] SARS-COV-2 COVID-19 2021-04-19 Completed Unive rsity of PFIZER VACCINE 00:00:00 [facility] [place] [facility] SARS-COV-2 COVID-19 2021-04-19 Completed Unive rsity of PFIZER VACCINE 00:00:00 [facility] [place] [facility] SARS-COV-2 COVID-19 2021-04-19 Completed Unive rsity of PFIZER VACCINE 00:00:00 [facility] [place] [facility] SARS-COV-2 COVID-19 2021-04-19 Completed Unive rsity of PFIZER VACCINE 00:00:00 [facility] [place] [facility] SARS-COV-2 COVID-19 2021-04-19 Completed Unive rsity of PFIZER VACCINE 00:00:00 [facility] [place] [facility] SARS-COV-2 COVID-19 2020-06-28 Completed Unive rsity of PFIZER VACCINE 00:00:00 [facility] [place] [facility] SARS-COV-2 COVID-19 2020-06-28 Completed Unive rsity of PFIZER VACCINE 00:00:00 [facility] [place] [facility] SARS-COV-2 COVID-19 2020-06-28 Completed Unive rsity of PFIZER VACCINE 00:00:00 [facility] [place] [facility] SARS-COV-2 COVID-19 2020-06-28 Completed Unive rsity of PFIZER VACCINE 00:00:00 [facility] [place] [facility] SARS-COV-2 COVID-19 2020-06-28 Completed Unive rsity of PFIZER VACCINE 00:00:00 [facility] [place] [facility] SARS-COV-2 COVID-19 2020-06-28 Completed Unive rsity of PFIZER VACCINE 00:00:00 [facility] [place] [facility] SARS-COV-2 COVID-19 2020-06-07 Completed Unive rsity of PFIZER VACCINE 00:00:00 [facility] [place] [facility] SARS-COV-2 COVID-19 2020-06-07 Completed Unive rsity of PFIZER VACCINE 00:00:00 [facility] [place] [facility] SARS-COV-2 COVID-19 2020-06-07 Completed Unive rsity of PFIZER VACCINE 00:00:00 [facility] [place] [facility] SARS-COV-2 COVID-19 2020-06-07 Completed Unive rsity of PFIZER VACCINE 00:00:00 [facility] [place] [facility] SARS-COV-2 COVID-19 2020-06-07 Completed Unive rsity of PFIZER VACCINE 00:00:00 [facility] [place] [facility] SARS-COV-2 COVID-19 2020-06-07 Completed Unive rsity of PFIZER VACCINE 00:00:00 [facility] [place] [facility] Afluria single dose Afluria single dose 2020-03-04 Completed [facility] 10:[facility]:00 [facility] Afluria single dose Afluria single dose 2020-03-04 Completed [facility] - 10:00:00 [facility] Afluria single dose Afluria single dose 2020-03-04 Completed [facility] - 10:00:00 [facility] Afluria single dose Afluria single dose 2020-03-04 Completed [facility] - 10:00:00 [facility] Afluria single dose Afluria single dose 2020-03-04 Completed [facility] - 10:00:00 [facility] Afluria single dose Afluria single dose 2020-03-04 Completed [facility] - 10:00:00 [facility] Afluria single dose Afluria single dose 2020-03-04 Completed [facility] - 10:00:00 [facility] Afluria single dose Afluria single dose 2020-03-04 Completed [facility] - 10:00:00 [facility] Afluria Afluria 2018-06-05 Completed [facility] - 10:15:00 [facility] Afluria Afluria 2018-06-05 Completed [facility] - 10:15:00 [facility] Afluria Afluria 2018-06-05 Completed [facility] - 10:15:00 [facility] Afluria Afluria 2018-06-05 Completed [facility] - 10:15:00 [facility] Afluria Afluria 2018-06-05 Completed [facility] - 10:15:00 [facility] Afluria Afluria 2018-06-05 Completed [facility] - 10:15:00 [facility] Afluria Afluria 2018-06-05 Completed [facility] - 10:15:00 [facility] Afluria Afluria 2018-06-05 Completed [facility] - 10:15:00 [facility] Afluria Afluria 2018-06-05 Completed [facility] 00:[facility]00 [facility] Pneumovax (PPSV23) Pneumovax (PPSV23) 2017-06-04 Completed [facility] 14:[facility]00 [facility] Adacel (Tdap) Adacel (Tdap) 2017-06-04 Completed [facility] 14:[facility]00 [facility] Pneumovax (PPSV23) Pneumovax (PPSV23) 2017-06-04 Completed [facility] 14:56:00 [facility] Adacel (Tdap) Adacel (Tdap) 2017-06-04 Completed [facility] 14:56[facility]00 [facility] Pneumovax (PPSV23) Pneumovax (PPSV23) 2017-06-04 Completed [facility] 14:56:00 [facility] Adacel (Tdap) Adacel (Tdap) 2017-06-04 Completed [facility] 14:56[facility]00 [facility] Pneumovax (PPSV23) Pneumovax (PPSV23) 2017-06-04 Completed [facility] 14:56:00 [facility] Adacel (Tdap) Adacel (Tdap) 2017-06-04 Completed [facility] 14:56[facility]00 [facility] Pneumovax (PPSV23) Pneumovax (PPSV23) 2017-06-04 Completed [facility] 14:56:00 [facility] Adacel (Tdap) Adacel (Tdap) 2017-06-04 Completed [facility] 14:56:00 [facility] Pneumovax (PPSV23) Pneumovax (PPSV23) 2017-06-04 Completed [facility] 14:56:00 [facility] Adacel (Tdap) Adacel (Tdap) 2017-06-04 Completed [facility] - 14:56:00 [facility] Pneumovax (PPSV23) Pneumovax (PPSV23) 2017-06-04 Completed [facility] 14:56:00 [facility] Adacel (Tdap) Adacel (Tdap) 2017-06-04 Completed [facility] 14:56[facility]00 [facility] Pneumovax (PPSV23) Pneumovax (PPSV23) 2017-06-04 Completed [facility] 14:56:00 [facility] Adacel (Tdap) Adacel (Tdap) 2017-06-04 Completed [facility] 14:56[facility]00 [facility] Vital Signs Vital Name Observation Time Observation Value Comments Source Systolic blood 2021-12-12 14:50:00 156 mm[Hg] Univer sity [facility] Diastolic blood 2021-12-12 14:50:00 95 mm[Hg] [facility] 2021-12-12 14:49:00 61 /min [facility] Body temperature 2021-12-12 14:49:00 37.06 Lian [facility] Body height 2021-12-12 14:49:00 170.2 cm [facility] Body weight 2021-12-12 14:49:00 97.977 kg [facility] BMI 2021-12-12 14:49:00 33.83 kg/m2 [facility] height 2020-12-16 13:10:00 67 [in_i] [facility] weight 2020-12-16 13:10:00 216 [lb_av] [facility] temperature 2020-12-16 13:10:00 98.5 [degF] [facility] bmi 2020-12-16 13:10:00 33.83 kg/m2 [facility] blood pressure 2020-12-16 13:10:00 139 mm[Hg] [facility] - systolic [facility] blood pressure 2020-12-16 13:10:00 87 mm[Hg] [facility] - diastolic [facility] height 2020-11-19 09:20:00 67 [in_i] [facility] weight 2020-11-19 09:20:00 216.9 [lb_av] [facility] temperature 2020-11-19 09:20:00 97.4 [degF] [facility] - [facility] bmi 2020-11-19 09:20:00 33.97 kg/m2 [facility] oximetry 2020-11-19 09:20:00 99 % [facility] respiratory rate 2020-11-19 09:20:00 18 /min Comm on [facility] blood pressure 2020-11-19 09:20:00 138 mm[Hg] Common [facility] - systolic [facility] blood pressure 2020-11-19 09:20:00 84 mm[Hg] [facility] - diastolic [facility] height 2020-08-20 10:30:00 67 [in_i] [facility] weight 2020-08-20 10:30:00 214.6 [lb_av] [facility] temperature 2020-08-20 10:30:00 97.3 [degF] [facility] bmi 2020-08-20 10:30:00 33.61 kg/m2 [facility] oximetry 2020-08-20 10:30:00 96 % [facility] respiratory rate 2020-08-20 10:30:00 18 /min Comm on [facility] blood pressure 2020-08-20 10:30:00 135 mm[Hg] [facility] - systolic [facility] blood pressure 2020-08-20 10:30:00 74 mm[Hg] [facility] - diastolic [facility] height 2020-06-03 10:10:00 67 [in_i] Common [facility] weight 2020-06-03 10:10:00 205 [lb_av] Common [facility] temperature 2020-06-03 10:10:00 98 [degF] [facility] bmi 2020-06-03 10:10:00 32.1 kg/m2 [facility] blood pressure 2020-06-03 10:10:00 148 mm[Hg] [facility] - systolic [facility] blood pressure 2020-06-03 10:10:00 89 mm[Hg] Common [facility] - diastolic [facility] height 2020-03-04 09:00:00 67 [in_i] Common [facility] weight 2020-03-04 09:00:00 206.1 [lb_av] [facility] temperature 2020-03-04 09:00:00 97.2 [degF] Common [facility] bmi 2020-03-04 09:00:00 32.28 kg/m2 [facility] oximetry 2020-03-04 09:00:00 97 % [facility] respiratory rate 2020-03-04 09:00:00 18 /min Comm on [facility] blood pressure 2020-03-04 09:00:00 138 mm[Hg] Common [facility] - systolic [facility] blood pressure 2020-03-04 09:00:00 78 mm[Hg] Common [facility] diastolic [facility] Procedures Procedure Date / Time Performed Performing Clinician Sourc e TDAP VACCINE, >11 2021-12-12 15:11:41 Alysia Anaya [facility] YRS, IM Medical Branch Encounters Start End Encounter Admission Attending Care Care Encounter Source Date/Time Date/Time Type Type Clinicians Facility Department ID 2021-05-11 Outpatient Dong [facility] [id number] Common 14:00:06 Caio 56345 [facility] 2021-05-11 Outpatient Dong [facility] [id number] Common 13:57:35 Caio 60381 [facility] 2021-05-11 Outpatient Dong, STLMLC STLMLC [id number] Common 13:45:15 Caio 99753 [facility] 2021-05-11 Outpatient Dong, STLMLC STLMLC [id number] Common 13:35:00 Caio 37126 [facility] 2021-05-11 Outpatient Dong, STLMLC STLMLC [id number] Common 13:00:17 Caio 25810 [facility] 2021-05-11 Outpatient Dong, STLMLC STLMLC [id number] Common 12:06:23 Caio 57038 [facility] 2021-05-11 Outpatient Dong, STLMLC STLMLC [id number] Common 12:05:57 Caio 00647 [facility] 2021-05-11 Outpatient Dong, STLMLC STLMLC [id number] Common 11:22:08 Caio 46920 [facility] 2021-05-11 Outpatient Dong, STLMLC STLMLC [id number] Common 11:21:41 Caio 51412 [facility] 2021-05-11 Outpatient Dong, STLMLC STLMLC [id number] Common 11:07:24 Caio 46416 [facility] 2021-05-11 Outpatient Dong, STLMLC STLMLC [id number] Common 11:06:51 Caio 30073 [facility] 2021-05-11 Outpatient Dong, STLMLC STLMLC [id number] Common 10:58:08 Caio 75823 [facility] 2021-02-14 Emergency [facility] [id number] Univers 18:18:31 ity of [facility] 2022-03-07 2022-03-07 Vilma Anaya [facility] 1.2.840.114 [id number] Univers 00:00:00 00:00:00 [facility] [id number] it y [facility] [id number] Han as CIRILO?BLEA [phone] Nm dicjennifer TAYLOR [address] [place] MEDICAL OFFICE [facility] 2022-02-26 2022-02-26 Refill Jaclyn [facility] 1.2.840.114 [id number] Univers 00:00:00 00:00:00 Alysia HEALTH [id number] it y of [place] [id number] Han as CIRILO?BLEA [id number] Nm dicjennifer TAYLOR [address] [place] [address] MEDICAL OFFICE [facility] 2021-12-13 2021-12-13 Patient Ron [facility] 1.2.840.114 [id number] Univers 00:00:00 00:00:00 Secure Msg Lissa M HEALTH [id number] ity of [place] [id number] Han as CIRILO?BLEA [phone] Nm dicjennifer TAYLOR [address] [place] [address] MEDICAL OFFICE [facility] 2021-12-13 2021-12-13 Patient Jaclyn [facility] 1.2.840.114 [id number] Univers 00:00:00 00:00:00 Secure Msg Alysia HEALTH [id number] ity of [place] [id number] Han as CIRILO?BLEA [id number] Nm marilin TAYLOR [address] [place] [address] OFFICE [facility] 2021-12-12 2021-12-12 [employer] [facility], Ang - [facility] 1.2.840.1 [id number] Univers 10:45:00 11:02:29 Visit Alysia Anaya HEALTH [id number] ity of [place] [id number] Han as CIRILO?BLEA [phone] Nm marilin TAYLOR [address] [place] MEDICAL OFFICE [facility] 2021-12-12 2021-12-12 Office Jaclyn [facility] 1.2.840.114 [id number] Univers 09:30:00 10:45:18 Visit Alysia HEALTH [id number] it y of [place] [id number] Han as CIRILO?BLEA [phone] Nm marilin TAYLOR [address] [place] [address] MEDICAL OFFICE [facility] 2021-12-12 2021-12-12 Outpatient R JACLYN [facility] [id number] Univers 09:30:00 10:45:18 ALYSIACORA mustafa [facility] 2021-12-12 2021-12-12 Outpatient R CITLALL[facility]AULTMAN [facility] [id number] Univers 10:45:00 10:45:00 ALYSIACORA mustafa [facility] 2021-12-12 2021-12-12 [facility] 1.2.840.114 [id number] Univers 00:00:00 00:00:00 Alysia HEALTH [id number] it y of [place] [id number] Han as CIRILO?BLEA [id number] [address] MEDICAL OFFICE [facility] 2021-12-02 2021-12-02 Outpatient Priya [facility] [id number] Univers 11:30:00 11:30:00 ALYSIA mustafa [facility] 2021-11-25 2021-11-25 Outpatient Priya [facility] [id number] Univers 11:12:18 23:59:00 ALYSIA mustafa [facility] 2021-11-25 2021-11-25 [facility] 1.2.840.114 [id number] Univers 11:00:00 23:59:00 Encounter Alysia MCDOWELLALO 350.1.13.10 ity of [place] 4.2.7.2.686 [place] [facility] [phone] [address] 2021-11-14 2021-11-14 [facility] 1.2.840.114 [id number] Univers 00:00:00 00:00:00 Esteban HEALTH [id number] it y of [place] [id number] Han as CIRILO?BLEA [phone] Nm jayjay[address] MEDICAL OFFICE [facility] 2021-11-07 2021-11-07 Outpatient Priya ORTIZ [facility] [id number] Univers 08:30:00 08:30:00 ESTEBAN mustafa [facility] 2021-11-04 2021-11-04 Outpatient Priya [facility]MAN [facility] [id number] Univers 11:15:00 11:15:00 ESTEBAN mustafa [facility] 2021-10-20 2021-10-20 [facility] R ANGEL [facility] [id number] Univers 08:15:00 08:15:00 ESTEBAN mustafa [facility] 2021-10-13 2021-10-13 Refjessica Kashifcarol [facility] 1.2.840.114 [id number] Univers 00:00:00 00:00:00 Esteban HEALTH [id number] it y of [place] [id number] Han as CIRILO?BLEA [phone] [address] MEDICAL OFFICE [facility] 2021-10-06 2021-10-06 Telephone [facility] [id number] Univers 00:00:00 00:00:00 Carlos HEALTH [id number] it y of [place] [id number] Han as CIRILO?BLEA [id number] [address] MEDICAL OFFICE [facility] 2021-10-05 2021-10-05 [facility] 1.2.840.114 [id number] Univers 00:00:00 00:00:00 Alysia HEALTH [id number] it y of [place] [id number] Han as CIRILO?BLEA [id number] [address] OFFICE [facility] 2021-09-30 2021-09-30 Telephone [facility] [id number] Univers 00:00:00 00:00:00 Alysia HEALTH [id number] it y of [place] [id number] Han as CIRILO?BLEA [phone] [address] OFFICE [facility] 2021-09-30 2021-09-30 Telephone [facility] [id number] Univers 00:00:00 00:00:00 Alysia HEALTH [id number] it y of [place] [id number] Han as CIRILO?BLEA [phone] [address] MEDICAL OFFICE [facility] 2021-09-302021-09-30 Telephone [facility] [id number] Univers 00:00:00 00:00:00 Alysia HEALTH [id number] it y of [place] [id number] Han as CIRILO?BLEA [id number] [facility] [address] OFFICE [facility] 2021-09-14 2021-09-14 [facility]ill [facility] 1.2.840.114 [id number] Univers 00:00:00 00:00:00 Alysia HEALTH [id number] it y of [place] [id number] Han as CIRILO?BLEA [id number] [address] OFFICE [facility] 2021-09-05 2021-09-05 [facility] 1.2.840.114 [id number] Univers 00:00:00 00:00:00 Alysia HEALTH [id number] it y of [place] [id number] Han as CIRILO?BLEA [id number] Nm marilin TAYLOR [address] [place] [address] OFFICE [facility] 2021-08-31 2021-08-31 Refjessica [facility]UN[facility] 1.2.840.114 [id number] Univers 00:00:00 00:00:00 Alysia HEALTH [id number] it y of [place] [id number] Han as CIRILO?BLEA [phone] [address] OFFICE [facility] 2021-08-04 2021-08-04 [employer] [facility], Ang - Mina [facility] 1.2.840.1 [id number] Univers 10:30:00 10:45:00 Visit Jaclyn Alysia HEALTH [id number] ity of [place] 4.2.7.2.686 Han as CIRILO?BLEA [phone] Nm marilin TAYLOR [address] [facility] OFFICE [facility] 2021-08-04 2021-08-04 Outpatient R JACLYN [facility] [id number] Univers 10:30:00 10:30:00 ALYSIA ity of [facility] 2021-08-04 2021-08-04 Office [facility] 1.2.840.114 [id number] Univers 10:00:00 10:29:38 Visit Alysia HOLDEN 350.1.13.10 it y of [place] 4.2.7.2.686 Han as CIRILO?BLEA [phone] [facility] 044 [facility] 2021-08-04 2021-08-04 Outpatient R JACLYN [facility] [id number] Univers 10:00:00 10:29:38 ALYSIA lloydestelita [facility] 2021-08-04 2021-08-04 Outpatient R JACLYN [facility] [id number] Univers 09:00:00 09:00:00 ALYSIA lloydestelita [facility] 2021-08-04 2021-08-04 Orders Doctor RUSS 1.2.840.114 [id number] Univers 00:00:00 00:00:00 Only Unassigned, LETITIA 350.1.13.10 ity of [place] [facility] 4.2.7.2.686 Han as [phone] [address] 2021-08-04 2021-08-04 Telephone [facility] [id number] Univers 00:00:00 00:00:00 Alysia HOLDEN 350.1.13.10 it y of [place] 4.2.7.2.686 Han as CIRILO?BLEA [id number] [address] 2021-04-19 2021-04-19 Outpatient Priya GRADY [facility] [id number] Univers 13:40:00 13:40:00 MARCIN mustafa [facility] 2021-04-19 2021-04-19 Imm/Inj Nurse, Adc Pob Immunization [facility] 1.2.840.114 [id number] Univers 13:40:00 13:40:00 Visit Marcin Grady 350.1.13 .10 ity of [place] 4.2.7.2.686 [place] PROFESS[place] [phone] Nm jayjay[address] 2021-04-19 2021-04-19 Outpatient R YSABEL [facility] [id number] Univers 11:00:00 11:00:00 MARCIN ity [facility] 2020-12-17 2020-12-17 Orders Doctor RUSS 1.2.840.114 [id number] Univers 00:00:00 00:00:00 Only Unassigned, LETITIA 350.1.13.10 ity of [place] [facility] 4.2.7.2.[id number] [facility] [address] 2020-12-16 2020-12-16 [facility] [id number] Co mmon 00:00:00 00:00:00 VISIT EST Spir it PT LEVEL 3 - [facility] 2020-12-13 2020-12-13 (TEL) [facility] [id number] Co mmon 00:00:00 00:00:00 Spirit - [facility] 2020-12-09 2020-12-09 Emergency Yudelka, [facility] 1.2.840.114 [id number] Univers 11:53:00 15:43:00 Horace Lira 350.1.13.10 i ty [facility] 4.2.7.2.686 [place] [facility] [phone] [facility] [address] 2020-12-09 2020-12-09 Orders Doctor RUSS 1.2.840.114 [id number] Univers 00:00:00 00:00:00 Only Unassigned, LETITIA 350.1.13.10 ity of [place] [facility] 4.2.7.2.[phone] [facility] [address] 2020-11-19 2020-11-19 PREV VISIT STLC STLC [id number] Common 00:00:00 00:00:00 EST AGE Spirit 40-64 - [facility] 2020-08-20 2020-08-20 [facility] [id number] Co mmon 00:00:00 00:00:00 VISIT [facility] ESTAB PT - [facility] LEVEL 4 [facility] 2020-06-28 2020-06-28 Outpatient Priya BONILLA [facility] [id number] Univers 12:30:00 12:30:00 CATRACHO ity [facility] 2020-06-172020-06-17 (TEL) STLMLC STLMLC [id number] Co mmon 00:00:00 00:00:00 Spirit - [facility] 2020-06-07 2020-06-07 Outpatient R IRENE, [facility] [id number] Univers 11:30:00 11:30:00 CATRACHO [facility] 2020-06-04 2020-06-04 (TEL) STLMLC STLMLC [id number] Co mmon 00:00:00 00:00:00 Spirit - [facility] 2020-06-03 2020-06-03 OFFICE STLMLC STLMLC [id number] Co mmon 00:00:00 00:00:00 VISIT Spirit ESTAB PT - CHI LEVEL 4 [facility] 2020-03-04 2020-03-04 OFFICE STLMLC STLMLC [id number] Co mmon 00:00:00 00:00:00 VISIT Spirit ESTAB PT - CHI LEVEL 4 [facility] 2019-11-26 2019-11-26 Out[facility] [id number] Common 10:30:00 10:30:[address] Sp[address] [facility] 2019-11-02 2019-11-02 Urgent Pob1, Acute [facility] 1.2.840.114 [id number] 13:59:31 14:19:31 [facility] 350.1.13.10 [place] 4.2.7.2.686 Professio [phone] nal [address] 2019-11-02 2019-11-02 Outpatient R [facility] [id number] Univers 14:00:00 14:00:00 [facility] 2019-08-27 2019-08-27 [facility] [id number] Common 10:45:00 10:45:[address] Sp[address] [facility] 2019-05-29 2019-05-29 Outpatient [facility] [id number] Common 11:15:00 11:15:[address] Sp[address] [facility] 2019-05-19 2019-05-19 Outpatient [facility] [id number] Common 08:53:00 08:53:[address] Sp[address] [facility] 2019-04-11 2019-04-11 Outpatient [facility] [id number] Common 17:13:00 17:13:[address] Sp[address] [facility] 2019-04-11 2019-04-11 Outpatient [facility] [id number] Common 17:03:00 17:03:[address] Sp[address] [facility] 2019-04-01 2019-04-01 Outpatient [facility] [id number] Common 11:28:00 11:28:[address] Sp[address] [facility] 2019-02-20 2019-02-20 Out[facility] [id number] Common 10:00:00 10:00:[address] Sp[address] [facility] 2019-02-12 2019-02-12 Out[facility] [id number] Common 07:51:00 07:51:00 t [facility] Bone [facility] Sp[facility] t [facility] Joint Joint - [facility] 2019-01-13 2019-01-13 Out[facility] [id number] Common 08:49:00 08:49:00 t Bone Bone and Spiri t and Joint Joint - [facility] of [facility] 2018-12-17 2018-12-17 Out[facility] [id number] Common 09:00:00 09:00:00 t Bone Bone and Spiri t and Joint Joint - [facility] 2018-11-15 2018-11-15 Out[facility] [id number] Common 08:45:00 08:45:[address] Sp[address] [facility] 2018-06-05 2018-06-05 Outpatient [facility] [id number] Common 13:43:00 13:43:[address] Sp[address] [facility] 2018-06-05 2018-06-05 Outpatient [facility] [id number] Common 10:00:00 10:00:[address] Sp[address] [facility] 2017-12-03 2017-12-03 Outpatient Shukri Avelar [id number] Common 12:26:00 12:26:[address] Sp[address] [facility] 2017-11-30 2017-11-30 Outpatient Shukri Avelar [id number] Common 10:30:00 10:30:[address] Sp[address] [facility] Results Test Description Test Time Test Comments Results Result Sourc e Comments BREAST ULTRASOUND 2018-06-19 - BREAST ULTRASOUND RIGHT 10:08:31 RIGHTULTRASOUND OF RIGHT BREAST AND RIGHT AXILLA: 06/19/2018CLINICAL: Right breast mass. Comparison is made to exam dated 06/17/2010 ultrasound - [facility]. Ultrasound of the right breast [...] - 06/22/2018 09:28:31Imaging Technologist: Sho GALE, [facility]: BIRADS 1-2 Combo FU Letter Ultrasound BI-RADS: 2 Benign DIAG MAMM 2018-06-19 - DIAG MAMM BILATERAL BILATERAL ADA 10:06:10 ADA CAD CAD DIGITAL DIGITALBILATERAL DIGITAL DIAGNOSTIC MAMMOGRAM 3D/2D WITH CAD: 06/19/2018CLINICAL: Right breast lump and pain. Digital breast tomosynthesis was performed in addition to routine CC and MLO views. Current mammographic images were evaluated by either a VuCOMP M-Vu or an iCAD version 7.2 computer aided detection system. Comparison is made to exam dated 06/17/2010 mammogram - [facility]. There are scattered fibroglandular tissues in both breasts. No suspicious mass, architectural distortion, malignant type calcification, or lymph node abnormality detected. IMPRESSION: INCOMPLETE ASSESSMENT: ADDITIONAL IMAGING EVALUATION RECOMMENDEDNegative bilateral mammogram. Additional evaluation with right breast ultrasound is requested an pending.Mega velasco/:06/19/2018 10:06:10 Graphic Design Professor: Sunday Hunter RG, [facility] BI-RADS: 0 Indeterminate
[2022-03-10] MEDS ORDERED: MECLIZINE HCL 12.5 MG TAB ONE (00:02)
[2022-03-10 00:44] LABS: Absolute Lymphocytes (CBC) 2.3 K/uL (0.7-4.9); Hematocrit 41.5 % (36.0-45.0); Lymphocytes % 37.7 % (15.3-44.8); MCV 93.3 fL (80-100); MPV 7.7 fL (7.6-11.3); RBC Red Blood Cell Count 4.45 M/uL (3.86-4.86)
[2022-03-10 00:47] LABS: Urine Blood Negative (Negative); Urine Glucose Negative (Negative); Urine Protein Negative (Negative); Urine Specific Gravity 1.025 (1.005-1.030)
[2022-03-10 00:56] LABS: Protime INR 0.95
[2022-03-10 01:01] LABS: Urine Bacteria <20 /HPF (<20)
[2022-03-10 01:03] LABS: Potassium 3.2 mmol/L (3.5-5.1); Troponin High Sensitivity 7.7 pg/mL (<58.9)
[2022-03-10] MEDS ORDERED: KCL 20 MEQ/100 mL IVPB 100 ML IV ONE (01:43)
[2022-03-10] MEDS ORDERED: NA CHLORIDE 0.9% 100 ML IV ONE (01:43)
--- NOTE | 2022-03-10 03:09 | ER ---
Nurse's Notes [facility] Name: Halima Serrano Age: 52 yrs Sex: Female : 1970 Arrival Date: 03/09/2022 Time: 23:25 Bed 19 Private MD: Diagnosis: Dizziness and giddiness;Vertigo;Essential (primary) hypertension Presentation: 03/09 23:55 Chief complaint: Patient states: C/o high BP at home and dizziness X2 days. Coronavirus as6 screen: Vaccine status: Patient reports receiving the 2nd dose of the covid vaccine. At this time, the client does not indicate any symptoms associated with coronavirus-19. Ebola Screen: No symptoms or risks identified at this time. Initial Sepsis Screen: Does the patient meet any 2 criteria? No. Patient's initial sepsis screen is negative. Does the patient have a suspected source of infection? No. Patient's initial sepsis screen is negative. Risk Assessment: Do you want to hurt yourself or someone else? Patient reports no desire to harm self or others. Onset of symptoms was March 07, 2022. 23:55 Method Of Arrival: Ambulatory as6 23:55 Acuity: KAVEH 3 as6 DEVELOPMENT EDITOR: 23:57 LMP N/A - Hysterectomy as6 Historical: - Allergies: 23:57 No Known Allergies; as6 - Home Meds: 23:57 atenolol 100 mg oral tab 1 tab once daily [Active]; metformin 500 mg oral tab 1 tab as6 [Active]; losartan 50 mg oral tab 1 tab once daily [Active]; - PMHx: 23:57 Diabetes - NIDDM; Hypertension; Hypothyroidism; as6 - Immunization history:: Client reports receiving the 2nd dose of the Covid vaccine. - Social history:: Smoking status: Patient denies any tobacco usage or history of. Patient uses street drugs, marijuana. - Family history:: not pertinent. - Hospitalizations: : No recent hospitalization is reported. Screenin/25 03:09 Abuse screen: Denies threats or abuse. Denies injuries from another. Nutritional as6 screening: No deficits noted. Tuberculosis screening: No symptoms or risk factors identified. Fall Risk None identified. Assessment: 00:00 General: Appears in no apparent distress. Behavior is calm, cooperative. Pain: as6 Complains of pain in head. Neuro: Level of Consciousness is awake, alert, obeys commands, Oriented to person, place, time, situation, Reports dizziness, headache. Respiratory: Respiratory effort is even, unlabored. 03:09 Reassessment: Patient appears in no apparent distress at this time. as6 03:25 General: discharge pending IV potassium administration completion . as6 Vital Signs: 03/09 23:55 BP 161 / 106; Pulse 68; Resp 18; Temp 97.6(O); Pulse Ox 99% on R/A; Weight 99.79 kg as6 (R); Height 5 ft. 7 in. (170.18 cm) (R); 03/10 01:39 BP 172 / 99; Pulse 66; Resp 16 S; Pulse Ox 100% on R/A; as6 03:07 BP 172 / 103; Pulse 60; Resp 18 S; Pulse Ox 96% on R/A; as6 03:52 BP 159 / 100; Pulse 71; Resp 13 S; Pulse Ox 97% on R/A; as6 03/09 23:55 Body Mass Index 34.46 (99.79 kg, 170.18 cm) as6 ED Course: 03/09 23:25 Patient arrived in ED. ja2 23:35 Eddie Winter MD is Attending Physician. rn 23:38 Sim Ga RN is Primary Nurse. as6 23:57 Triage completed. as6 23:57 Arm band placed on Patient placed in an exam room, on a stretcher, on pulse oximetry. as6 03/10 00:09 EKG done, by ED staff, reviewed by Eddie Winter MD. mb4 00:20 Inserted saline lock: 18 gauge in right antecubital area, using aseptic technique. as6 Blood collected. ultrasound guided IV. 00:28 CBC with Diff Sent. as6 00:28 Basic Metabolic Panel Sent. as6 00:28 Ptt, Activated Sent. as6 00:28 Protime (+inr) Sent. as6 00:29 Placed in gown. Bed in low position. Call light in reach. Side rails up X2. as6 00:29 BNP Sent. as6 00:29 Troponin High Sensitivity Sent. as6 01:11 CT Head Brain wo Cont In Process Unspecified. EDMS 01:[address] In Process Unspecified. EDMS 01:[address] In Process Unspecified. EDMS 03:08 Yasir Prado MD is Referral Physician. rn 03:09 No provider procedures requiring assistance completed. as6 03:52 IV discontinued, intact, bleeding controlled, No redness/swelling at site. Pressure as6 dressing applied. Administered Medications: 00:03 Drug: Meclizine 50 mg Route: PO; as6 03:26 Follow up: Response: No adverse reaction as6 01:53 Drug: Potassium Chloride 20 mEq Route: IV; Rate: calculated rate; Site: right as6 antecubital; 03:26 Follow up: Response: No adverse reaction; IV Status: Completed infusion; IV Intake: as6 100ml 03:25 Drug: cloNIDine 0.1 mg Route: PO; as6 03:26 Follow up: Response: No adverse reaction as6 Medication: 03:09 VIS not applicable for this client. as6 Intake: 03:26 IV: 100ml; Total: 100ml. as6 Outcome: 03:09 Discharge ordered by MD. rn 03:26 Discharged to home ambulatory. as6 03:26 Condition: stable 03:26 Discharge instructions given to patient, Instructed on discharge instructions, follow up and referral plans. medication usage, Demonstrated understanding of instructions, follow-up care, medications, Prescriptions given X 1. 03:53 Patient left the ED. as6 Signatures: Dispatcher [employer] [facility] Eddie Winter MD MD rn Baxter, Mackenzie mb4 Louann Cifuentes Ashby, ANAY RN as6
--- NOTE | 2022-03-10 03:09 | EDPHYS ---
Physician Documentation [facility] Name: Halima Serrano Age: 52 yrs Sex: Female : 1970 Arrival Date: 03/09/2022 Time: 23:25 Bed 19 Private MD: ED Physician Eddie Winter HPI: 03/10 00:05 This 52 yrs old Black Female presents to ER via Ambulatory with complaints of Headache, rn Dizziness, High Blood Pressure. 00:05 The patient presents with dizziness, lightheadedness. Onset: The symptoms/episode rn began/occurred 2 day(s) ago. Modifying factors: The symptoms are alleviated by nothing, the symptoms are aggravated by movement of head, standing up, changing position. Associated signs and symptoms: Pertinent positives: nausea, Pertinent negatives: blurred vision, chest pain, confusion, diaphoresis, focal weakness, head injury, seizure, shortness of breath, syncope. Severity of symptoms: At their worst the symptoms were mild in the emergency department the symptoms are unchanged. The patient has not experienced similar symptoms in the past. The patient has not recently seen a physician. Pt reports dizziness for last 2 days, intermittent, worse with change in position or head position. NO head injury. + headache. Also having trouble sleeping since this started. Checked BP, was elevated, improves after takes her BP meds, but dizziness has not resolved. No focal weakness. No change in vision.. 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 - Social history:: Smoking status: Patient denies any tobacco usage or history of. Patient uses street drugs, marijuana. - Family history:: not pertinent. - Hospitalizations: : No recent hospitalization is reported. ROS: 03/10 00:05 Constitutional: Negative for fever, chills, and weight loss, Eyes: Negative for injury, rn pain, redness, and discharge, Neck: Negative for injury, pain, and swelling, Cardiovascular: Negative for chest pain, palpitations, and edema, Respiratory: Negative for shortness of breath, cough, wheezing, and pleuritic chest pain, Abdomen/GI: Negative for abdominal pain, vomiting, diarrhea, and constipation, Back: Negative for injury and pain, MS/Extremity: Negative for injury and deformity, Skin: Negative for injury, rash, and discoloration, Neuro: Negative for weakness, and seizure Exam: 00:05 Constitutional: This is a well developed, well nourished patient who is awake, alert, rn tearful and emotional Head/Face: Normocephalic, atraumatic. Eyes: Pupils equal round and reactive to light, extra-ocular motions intact. Lids and lashes normal. Conjunctiva and sclera are non-icteric and not injected. Cornea within normal limits. Periorbital areas with no swelling, redness, or edema. Cardiovascular: Regular rate and rhythm. No pulse deficits. Respiratory: No increased work of breathing, no retractions or nasal flaring. Abdomen/GI: Soft, non-tender Skin: Warm, dry MS/ Extremity: Pulses equal, no cyanosis. Neuro: Awake and alert, GCS 15, oriented to person, place, time, and situation. Cranial nerves II-XII grossly intact. Motor strength 5/5 in all extremities. Sensory grossly intact. Cerebellar exam normal. Normal gait. 03:47 ECG was reviewed by the Attending Physician. rn Vital Signs: 03/09 23:55 BP 161 / 106; Pulse 68; Resp 18; Temp 97.6(O); Pulse Ox 99% on R/A; Weight 99.79 kg as6 (R); Height 5 ft. 7 in. (170.18 cm) (R); 03/10 01:39 BP 172 / 99; Pulse 66; Resp 16 S; Pulse Ox 100% on R/A; as6 03:07 BP 172 / 103; Pulse 60; Resp 18 S; Pulse Ox 96% on R/A; as6 03:52 BP 159 / 100; Pulse 71; Resp 13 S; Pulse Ox 97% on R/A; as6 03/09 23:55 Body Mass Index 34.46 (99.79 kg, 170.18 cm) as6 MDM: 03/09 23:35 Patient medically screened. rn 03/10 01:34 ED course: Pt ambulatory to triage and room without ataxia or difficulty ambulating, rn not requiring assistance. . 03:07 Differential diagnosis: CVA, hyperventilation, hypovolemia, idiopathic dizziness, TIA, rn vertigo. Data reviewed: vital signs, nurses notes, lab test result(s), EKG, radiologic studies, CT scan, and as a result, I will discharge patient. Counseling: I had a detailed discussion with the patient and/or guardian regarding: the historical points, exam findings, and any diagnostic results supporting the discharge/admit diagnosis, lab results, radiology results, the need for outpatient follow up, to return to the emergency department if symptoms worsen or persist or if there are any questions or concerns that arise at home. Response to treatment: the patient's symptoms have mildly improved after treatment, and as a result, I will discharge patient. Special discussion: I discussed with the patient/guardian in detail that at this point there is no indication for admission to the hospital. It is understood, however, that if the symptoms persist or worsen the patient needs to return immediately for re-evaluation. Based on the history and exam findings, there is no indication for further emergent testing or inpatient evaluation. I discussed with the patient/guardian the need to see the neurologist for further evaluation of the symptoms. I discussed with the patient/guardian the need to see the primary care provider for further evaluation of the symptoms. 03:07 ED course: CT head neg, ct head angio neg, ct neck angio neg.. rn 03/09 23:45 Order name: CBC with Diff; Complete Time: rn 03/09 23:45 Order name: Basic Metabolic Panel; Complete Time: rn 03/09 23:45 Order name: Protime (+inr); Complete Time: rn 03/09 23:45 Order name: Ptt, Activated; Complete Time: rn 03/09 23:45 Order name: Urine Microscopic Only; Complete Time: rn 03/09 23:45 Order name: Troponin High Sensitivity; Complete Time: rn 03/09 23:45 Order name: CT Head Brain wo Cont rn 03/09 23:45 Order name: Head Angio CT rn 03/09 23:45 Order name: Neck Angio CT rn 03/09 23:45 Order name: BNP; Complete Time: 01:34 rn 03/10 00:47 Order name: Urine Dipstick-Ancillary; Complete Time: 01:34 EDDE 03/10 01:42 Order name: CREATININE WHOLE BLOOD; Complete Time: 02:06 [facility] 03/09 23:45 Order name: IV Start; Complete Time: 00:28 rn 03/09 23:45 Order name: Urine Dipstick-Ancillary (obtain specimen); Complete Time: 01:07 rn 03/09 23:45 Order name: EKG; Complete Time: 23:46 rn 03/09 23:45 Order name: EKG - Nurse/Tech; Complete Time: 00:13 rn EC:47 Rate is 62 beats/min. Rhythm is regular. Left axis deviation noted. QRS is positive in rn lead I and negative in lead aVF. LA interval is normal. QRS interval is normal. QT interval is normal. No Q waves. T waves are Normal. No ST changes noted. Clinical impression: NSR w/ Non-specific ST/T Changes. Interpreted by me. Reviewed by me. Administered Medications: 00:03 Drug: Meclizine 50 mg Route: PO; as6 03:26 Follow up: Response: No adverse reaction as6 01:53 Drug: Potassium Chloride 20 mEq Route: IV; Rate: calculated rate; Site: right as6 antecubital; 03:26 Follow up: Response: No adverse reaction; IV Status: Completed infusion; IV Intake: as6 100ml 03:25 Drug: cloNIDine 0.1 mg Route: PO; as6 03:26 Follow up: Response: No adverse reaction as6 Disposition Summary: 03/10/22 03:09 Discharge Ordered Location: Home rn Problem: new rn Symptoms: have improved rn Condition: Stable rn Diagnosis - Dizziness and giddiness rn - Vertigo rn - Essential (primary) hypertension rn Followup: rn - With: Yasir Prado MD - When: As needed - Reason: Recheck today's complaints, Re-evaluation by your physician Discharge Instructions: - Discharge Summary Sheet rn - Dizziness rn - Hypertension, Adult rn - Vertigo rn - Managing Your Hypertension rn Forms: - Medication Reconciliation Form rn - Thank You Letter rn - Antibiotic pricing intern - Prescription Opioid Use rn Prescriptions: - Meclizine 25 mg Oral Tablet - take 1 tablet by ORAL route every 8 hours As needed; 20 tablet; Refills: 0, rn Product Selection Permitted Signatures: Dispatcher [employer] Eddie Hamilton MD MD rn Slawson, Ashby, RN RN as6 July Overton, JAI VERGARA sb4
[2022-03-10] MEDS ORDERED: cloNIDine HCL 0.1 MG TAB ONE (03:13)
[2022-03-10 04:09] VITALS: TEMP 97.6
[2022-03-10 04:21] VITALS: BP 159/100; O2SAT 97
--- NOTE | 2022-03-10 16:32 | EKG ---
Test Date: 2022-03-10 Test Time: 00:07:53 Electric Stop Installer: JEWELL MEASUREMENT RESULTS: Intervals: Rate: 62 HI: 166 QRSD: 82 QT: 430 QTc: 436 [place]: P: 53 HI: 166 QRS: -26 T: 33 INTERPRETIVE STATEMENTS: Normal sinus rhythm Biatrial enlargement Left ventricular hypertrophy Abnormal ECG Compared to ECG 10/08/2014 00:52:04 Atrial abnormality now present Left ventricular hypertrophy now present Sinus bradycardia no longer present Myocardial infarct finding no longer present Electronically Signed On 03-10-22 16:31:59 TOUR LEADER by Jhonathan Silverio
--- NOTE | 2022-03-10 18:49 | RAD REPORT ---
EXAM DESCRIPTION: CT - Head angio - 03/10/2022 2:13 am CLINICAL HISTORY: 52 years, Female, headache, dizziness COMPARISON: Recent CT scan of the head without contrast performed 1:06 AM. TECHNIQUE: Multiple transaxial tomograms from the aortic arch through the brain were performed after administration of a 100 cc of Omnipaque 350 at a rate of 5 cc/s for complete opacification of the ca rotid arteries and intracranial vessels. Subsequent 2-D and 3-D multiplanar reformats, volume rendering technique and maximum intensity projec tion images were generated and reviewed. Stenosis measurements were performed according to NASCET cri teria. CAROTID STENOSIS REFERENCE USING NASCET CRITERIA: % ICA stenosis = (1 - narrowest ICA diameter/diameter of distal cervical ICA) x 100. Mild - <50% stenosis. Moderate - 50-69% stenosis. Severe - 70-94% stenosis. Near occlusion - 95-99% stenosis. Occluded - 100% stenosis. This exam was performed according to our departmental dose-optimization protocol, which includes auto mated exposure control, adjustment of the mA and/or kV according to patient size and/or use of iterat kem reconstruction technique. FINDINGS: Ascending aorta: There is a normal branching pattern of the great vessels off the arch. There are codominant vertebral arteries which demonstrate normal opacification. No great vessel o rigin stenosis is identified. Right carotid artery: Normal opacification is demonstrated within the right common carotid artery a nd at the carotid bifurcation. The right carotid bulb demonstrate to be within normal limits. There i s no evidence for significant stenosis. The proximal, mid and distal portions of the right internal c arotid artery demonstrate to be patent. There is no evidence for significant stenosis and/or occlusio n. Left carotid artery: Normal opacification is demonstrated within the left common carotid artery an d at the carotid bifurcation. The left carotid bulb demonstrate very minimal peripheral plaque. There is no evidence for significant stenosis. The proximal, mid and distal portions of the left internal carotid artery demonstrate to be patent. There is no evidence for significant stenosis and/or occlusi on. Intracranial circulation: Intracranial portions of the internal carotid arteries the cavernous sinus portions demonstrates minimal peripheral plaque with no evidence for significant stenosis/or aneurysm . The anterior cerebral arteries, middle cerebral arteries and its branches demonstrate normal opac ification with no evidence for significant stenosis aneurysm and/or occlusion. There is normal venous drainage with no evidence for significant sinus vein thrombosis. Vertebrobasilar system: The posterior circulation demonstrate codominant bilateral vertebral arteries with no evidence for significant stenosis and/or evidence for significant dissection. The vertebroba silar system and FIELD OBSERVER demonstrate to be normal with no evidence for aneurysm and/or occlusion. Grossly the brain parenchyma demonstrate normal dominguez-white matter differentiation with no evidence fo r mass effect and/or midline shift. The skull base and intracranial structures demonstrate to be within normal limits. Lung apex: No gross abnormalities are noted within the apices. IMPRESSION: No evidence for significant stenosis and/or occlusion of the cervical carotid or vertebr al arteries. Minimal peripheral plaque within the carotid bulbs bilaterally, without evidence for significant sten osis. No evidence for significant stenosis and/or occlusion of the intracranial circulation. Electronically signed by: Enrique Decker MD 03/10/2022 1:33 AM ACCOUNTING ASSISTANT Due to temporary technical issues with the PACS/Fluency reporting system, reports are being signed by the in house radiologists without review as a courtesy to insure prompt reporting. The interpreting radiologist is fully responsible for the content of the report.
--- NOTE | 2022-03-10 18:51 | RAD REPORT ---
EXAM DESCRIPTION: CT - Neck Angio - 03/10/2022 2:14 am CLINICAL HISTORY: 52 years, Female, headache, dizziness COMPARISON: Recent CT scan of the head without contrast performed 1:06 AM. TECHNIQUE: Multiple transaxial tomograms from the aortic arch through the brain were performed after administration of a 100 cc of Omnipaque 350 at a rate of 5 cc/s for complete opacification of the ca rotid arteries and intracranial vessels. Subsequent 2-D and 3-D multiplanar reformats, volume rendering technique and maximum intensity projec tion images were generated and reviewed. Stenosis measurements were performed according to NASCET cri teria. CAROTID STENOSIS REFERENCE USING NASCET CRITERIA: % ICA stenosis = (1 - narrowest ICA diameter/diameter of distal cervical ICA) x 100. Mild - <50% stenosis. Moderate - 50-69% stenosis. Severe - 70-94% stenosis. Near occlusion - 95-99% stenosis. Occluded - 100% stenosis. This exam was performed according to our departmental dose-optimization protocol, which includes auto mated exposure control, adjustment of the mA and/or kV according to patient size and/or use of iterat kem reconstruction technique. FINDINGS: Ascending aorta: There is a normal branching pattern of the great vessels off the arch. There are codominant vertebral arteries which demonstrate normal opacification. No great vessel o rigin stenosis is identified. Right carotid artery: Normal opacification is demonstrated within the right common carotid artery a nd at the carotid bifurcation. The right carotid bulb demonstrate to be within normal limits. There i s no evidence for significant stenosis. The proximal, mid and distal portions of the right internal c arotid artery demonstrate to be patent. There is no evidence for significant stenosis and/or occlusio n. Left carotid artery: Normal opacification is demonstrated within the left common carotid artery an d at the carotid bifurcation. The left carotid bulb demonstrate very minimal peripheral plaque. There is no evidence for significant stenosis. The proximal, mid and distal portions of the left internal carotid artery demonstrate to be patent. There is no evidence for significant stenosis and/or occlusi on. Intracranial circulation: Intracranial portions of the internal carotid arteries the cavernous sinus portions demonstrates minimal peripheral plaque with no evidence for significant stenosis/or aneurysm . The anterior cerebral arteries, middle cerebral arteries and its branches demonstrate normal opac ification with no evidence for significant stenosis aneurysm and/or occlusion. There is normal venous drainage with no evidence for significant sinus vein thrombosis. Vertebrobasilar system: The posterior circulation demonstrate codominant bilateral vertebral arteries with no evidence for significant stenosis and/or evidence for significant dissection. The vertebroba silar system and PRESS WORKER HELPER demonstrate to be normal with no evidence for aneurysm and/or occlusion. Grossly the brain parenchyma demonstrate normal dominguez-white matter differentiation with no evidence fo r mass effect and/or midline shift. The skull base and intracranial structures demonstrate to be within normal limits. Lung apex: No gross abnormalities are noted within the apices. IMPRESSION: No evidence for significant stenosis and/or occlusion of the cervical carotid or vertebr al arteries. Minimal peripheral plaque within the carotid bulbs bilaterally, without evidence for significant sten osis. No evidence for significant stenosis and/or occlusion of the intracranial circulation. Electronically signed by: Enrique Decker MD 03/10/2022 1:33 AM FARM MANAGEMENT AGENT Due to temporary technical issues with the PACS/Fluency reporting system, reports are being signed by the in house radiologists without review as a courtesy to insure prompt reporting. The interpreting radiologist is fully responsible for the content of the report.
--- NOTE | 2022-03-10 18:52 | RAD REPORT ---
EXAM DESCRIPTION: CT - Head Brain Wo Cont - 03/10/2022 2:12 am CLINICAL HISTORY: 52 years, Female, dizziness, headache COMPARISON: None. FINDINGS: Multiple transaxial tomograms of the brain were obtained from the base of the skull to the vertex without contrast. 2-D multiplanar reformats and the coronal and sagittal plane were performed and reviewed. This exam was performed according to our departmental dose-optimization protocol, which includes auto mated exposure control, adjustment of the mA and/or kV according to patient size and/or use of iterat kem reconstruction technique. Brain parenchyma as well as the dominguez and white matter differentiation demonstrate to be unremarkable. There is no midline shift and/or mass effect. There is no evidence for acute hemorrhage. No focal ar eas of hypodensities.. Lateral ventricles and cisterns displace normal appearance. No intra or ex tra axial fluid collections were seen. The calvarium is intact with no evidence for fracture. The vis ualized portions of the paranasal sinuses and orbits demonstrate to be clear. IMPRESSION: No acute intracranial hemorrhage identified. Unremarkable CT scan of the head without contrast. Electronically signed by: Enrique Decker MD 03/10/2022 1:30 AM TRANSIT AUTHORITY POLICE OFFICER Due to temporary technical issues with the PACS/Fluency reporting system, reports are being signed by the in house radiologists without review as a courtesy to insure prompt reporting. The interpreting radiologist is fully responsible for the content of the report.
== END 2022-03-10 03:53 | disposition home or self-care (01) ==
LOC: ER 23:20
DX: R42 Dizziness and giddiness (principal); I10 Essential (primary) hypertension
CPT/HCPCS: 96365; 93005; 85025; 80048; 36415; 85610; 82565; 85730; 84484; 83880; 70450; 70496; 70498; 99284; 96366; Q9967; J8597; J3480; 81003; 81015